=== PATIENT | male | born 1985 | race Caucasian/White ===

== ENCOUNTER 2023-07-02 08:24 | Emergency (ER) | payer MEDICAID ==
[~2023-07-02] VITALS: Ht 172.7 cm; Wt 65.8 kg
[2023-07-02 08:44] VITALS: BP 109/71; PULSE 75; RESP 14; TEMP 98.5; O2SAT 98
[2023-07-02 09:45] VITALS: BP 109/71; PULSE 75; RESP 14; TEMP 98.5; O2SAT 98
== END 2023-07-02 09:45 | disposition home or self-care (01) ==
LOC: MED 08:24
DX: S62.511A Displaced fracture of proximal phalanx of right thumb, initial encounter for closed fracture (principal); X58.XXXA Exposure to other specified factors, initial encounter; Y93.89 Activity, other specified; Y92.89 Other specified places as the place of occurrence of the external cause; Y99.8 Other external cause status
CPT/HCPCS: 99281